=== PATIENT | female | born 1945 | race Caucasian/White ===

== ENCOUNTER 2017-06-14 06:30 | Day surgery (SDC) | payer MEDICARE ==
[2017-06-12 10:09] LABS: BASOPHILS # (AUTO) 0.03 x10^3/uL (0-0.1); BASOPHILS % (AUTO) 1 % (0-1); EOSINOPHILS % (AUTO) 2 % (1-7); LYMPHOCYTES # (AUTO) 1.81 x10^3/uL (1-3.4); LYMPHOCYTES % (AUTO) 33 % (22-44); MD NO; MEAN CORPUSCULAR HGB CONC 33.3 g/dL (32.4-35.8); MEAN PLATELET VOLUME 8.5 fL (7.4-10.4); MONOCYTES # (AUTO) 0.33 x10^3/uL (0.2-0.8); MONOCYTES % (AUTO) 6 % (2-9); NEUTROPHILS # (AUTO) 3.27 x10^3/uL (1.8-6.8); NEUTROPHILS % (AUTO) 59 % (42-75); PLATELET COUNT 188 x10^3/uL (130-400); RED BLOOD COUNT 4.55 x10^6/uL (3.82-5.3); RED CELL DISTRIBUTION WIDTH 13.9 % (9.6-15.2)
[2017-06-12 10:16] LABS: INTERNATIONAL NORMALIZED RATIO 0.99 (0.93-1.1); PROTHROMBIN TIME 10.2 Seconds (9.6-11.5)
[2017-06-12 10:25] LABS: ALANINE AMINOTRANSFERASE 18 U/L (12-78); ALBUMIN 3.6 g/dL (3.4-5.0); ANION GAP 5 mmol/L (5-15); CALCIUM 8.6 mg/dL (8.5-10.1); CHLORIDE 110 mmol/L (98-107); CREATININE 0.75 mg/dL (0.55-1.02)
[2017-06-12 10:27] LABS: ALKALINE PHOSPHATASE 87 U/L (45-117); BILIRUBIN,TOTAL 0.5 mg/dL (0.2-1.0); TOTAL PROTEIN 7.2 g/dL (6.4-8.2)
[~2017-06-14] VITALS: Ht 157.5 cm; Wt 52.0 kg
[~2017-06-14 06:30] MED LIST: GABA100C PO; THYR120T PO
[2017-06-14] MEDS ORDERED: LACTATED RINGERS 1,000 ML IV SCH (06:50)
[2017-06-14 06:58] VITALS: BP 124/76
[2017-06-14] MEDS ORDERED: ISOSULFAN BLUE 10 MG/ML, 5ML IV ONE (08:12)
[2017-06-14] MEDS ORDERED: MIDAZOLAM 1 MG/ML, 2ML ONE (09:31)
[2017-06-14] MEDS ORDERED: FENTANYL PF 100 MCG/2ML ONE ×2 (09:31)
[2017-06-14] MEDS ORDERED: PROPOFOL 10 MG/ML, 20ML ONE (09:32)
[2017-06-14] MEDS ORDERED: LIDOCAINE-MPF 2% ,5ML ONE (09:32)
[2017-06-14] MEDS ORDERED: SODIUM CHLORIDE 0.9% PF 10ML ONE (09:33)
[2017-06-14] MEDS ORDERED: CEFAZOLIN 1,000 MG ONE (09:33)
[2017-06-14] MEDS ORDERED: PHENYLEPHRINE 10 MG/ML ONE (09:34)
[2017-06-14] MEDS ORDERED: SUCCINYLCHOLINE 20 MG/ML, 10ML ONE (09:38)
[2017-06-14] MEDS ORDERED: BUPIVACAINE/PF 0.5% ONE (10:07)
[2017-06-14] MEDS ORDERED: KETOROLAC 30 MG/1 ML ONE (10:15)
[2017-06-14] MEDS ORDERED: DEXAMETHASONE 4 MG/ML, 1ML ONE ×2 (10:24)
[2017-06-14] MEDS ORDERED: ONDANSETRON 2MG/ML, 2ML ONE ×3 (11:45→12:15)
[2017-06-14] MEDS ORDERED: PROMETHAZINE 25 MG/ML, 1ML ONE (12:27)
[2017-06-14] MEDS ORDERED: HYDROmorphone 1 MG/ML, 1ML IV PRN (12:30)
[2017-06-14] MEDS ORDERED: ACETAMINOPHEN 325 MG TABLET PO PRN (12:30)
[2017-06-14] MEDS ORDERED: PROMETHAZINE 25 MG/ML, 1ML IV PRN (12:30)
[2017-06-14] MEDS ORDERED: OXYcodone 5 MG/5 ML ORAL.SOL UDC PO PRN (12:30)
[2017-06-14] MEDS ORDERED: LABETALOL 5MG/ML, 20ML IV PRN (12:30)
[2017-06-14] MEDS ORDERED: FENTANYL PF 100 MCG/2ML IV PRN (12:30)
[2017-06-14] MEDS ORDERED: ONDANSETRON 2MG/ML, 2ML IVPush PRN (12:30)
[2017-06-14] MEDS ORDERED: MEPERIDINE/PF 25MG/0.5ML IVPush PRN (12:30)
[2017-06-14] MEDS ORDERED: hydrALAzine 20 MG/ML, 1ML IV PRN (12:30)
[2017-06-14] MEDS ORDERED: METOCLOPRAMIDE 5 MG/ML, 2ML ONE (12:48)
[2017-06-14] MEDS ORDERED: METOCLOPRAMIDE 5 MG/ML, 2ML IVPush PRN (13:00)
[2017-06-14] MEDS ORDERED: ACETAMINOPHEN 650 MG/20.3 ML UDC ONE (13:01)
[2017-06-14] MEDS ORDERED: OXYcodone 5 MG/5 ML ORAL.SOL UDC ONE (13:02)
== END 2017-06-14 14:40 | disposition home or self-care (01) ==
LOC: STAR 06:30
PROVIDERS: ATTEND Surgery
DX: C43.59 Malignant melanoma of other part of trunk (principal); Z87.39 Personal history of other diseases of the musculoskeletal system and connective tissue; Z98.890 Other specified postprocedural states; Z90.710 Acquired absence of both cervix and uterus
CPT/HCPCS: 11606; 36415; 38525; 78195; 80053; 85025; 85610; 88307; 93005; A9541; J0330; J0690; J1100; J1885; J2250; J2370; J2405; J2550; J2704; J2765; J3010; J3490